=== PATIENT | female | born 1995 | race Caucasian/White ===

== ENCOUNTER 2021-12-31 21:13 | Outpatient (CLI) | payer OTHER ==
[2021-12-31] MEDS ORDERED: PRENATAL CAPLE1 EAC1 PO (23:27)
[2022-01-01] MEDS ORDERED: AMPICILLIN TRI500 MG PO (12:13)
== END 2022-01-01 12:45 | disposition home or self-care (01) ==
LOC: OBS/DEL 21:13
PROVIDERS: ATTEND Specialist
DX: O44.42 Low lying placenta NOS or without hemorrhage, second trimester (principal); N20.0 Calculus of kidney; Z3A.23 23 weeks gestation of pregnancy

== ENCOUNTER 2022-06-07 11:15 | Outpatient (CLI) | payer OTHER ==
[~2022-06-07 11:15] MED LIST: AMPICILLIN TRI500 MG PO; PRENATAL CAPLE1 EAC1 PO
== END 2022-06-07 11:40 | disposition home or self-care (01) ==
LOC: TOM 11:15
PROVIDERS: ATTEND Urology
DX: N20.0 Calculus of kidney (principal); N39.0 Urinary tract infection, site not specified